=== PATIENT | female | born 1990 | race Caucasian/White ===

== ENCOUNTER → 2020-02-23 | Outpatient (REF) | payer OTHER | LOC: M PLALAB 14:00 | PROVIDERS: ATTEND Advanced Practice Midwife | DX: O34.211 Maternal care for low transverse scar from previous cesarean delivery (principal); O09.291 Supervision of pregnancy with other poor reproductive or obstetric history, first trimester ==

== ENCOUNTER → 2020-08-16 | Outpatient (CLI) | payer OTHER ==
--- NOTE | 2020-08-16 15:51 | REP ---
INDICATION: GROWTH COMPARISON: None. TECHNIQUE: Transabdominal obstetrical ultrasound with color Doppler evaluation. FINDINGS: Examination demonstrates a single live intrauterine in cephalic presentation. motion is identified by technologist. Placenta is noted posterior and grade 2 without evidence for placenta previa or abruption. Amniotic fluid volume is normal. Cervix measures 5.0 cm in length and appears closed.. Selected gestational age: 37 weeks 4 days with LEONIDES 09/02/2020. Gestational age by current measurements 37 weeks 4 days with LEONIDES 09/02/2020. FHR equals 139 beats per minute. BPD: 9.2 cm at 37 weeks 1 day HC: 33.5 cm at 38 weeks 2 days AC: 34.2 cm at 38 weeks 1 day FL: 7.3 cm at 37 weeks 2 days HL: 6.3 cm at 36 weeks 5 days HC/AC: 0.98 Estimated weight 3320 grams (66thpercentile). JEIMY: 16.6 cm (7.5-24.1) Umbilical artery SD ratio: 2.23 (1.57-3.39) IMPRESSION: Single live advanced gestation in cephalic presentation demonstrating appropriate estimated weight and growth. <Electronically signed by Marcus Crystal > 08/16/20 2320
== END ==
LOC: M WHC 14:58
PROVIDERS: ATTEND Advanced Practice Midwife
DX: O34.211 Maternal care for low transverse scar from previous cesarean delivery (principal); O09.293 Supervision of pregnancy with other poor reproductive or obstetric history, third trimester

== ENCOUNTER → 2020-08-27 | Outpatient (CLI) | payer OTHER ==
[~2020-08-27] MED LIST: ABILIFY PO; ERRI0.355 PO; LEXA1TAB PO; PRENTAB9 PO; TYLE500T78 PO; VITA100067 PO
== END ==
LOC: M LABSMTC 11:35
PROVIDERS: ATTEND Specialist
DX: Z11.52 Encounter for screening for COVID-19 (principal)

== ENCOUNTER → 2020-09-03 | Outpatient (CLI) | payer OTHER | LOC: M LABSMTC 11:23 | PROVIDERS: ATTEND Specialist | DX: Z11.52 Encounter for screening for COVID-19 (principal) ==

== ENCOUNTER 2020-09-09 16:58 | Inpatient (IN) | payer OTHER ==
[~2020-09-09] VITALS: Ht 162.6 cm; Wt 99.0 kg
[2020-09-09 17:20] VITALS: BP 136/83
[2020-09-09] MEDS ORDERED: LACTATED RINGER'S 1000 ML IV STA (17:34)
[2020-09-09 18:06] LABS: HEMATOCRIT 39.6 % (36.0-47.0); HEMOGLOBIN 13.2 g/dl (12.0-15.5); MEAN CORPUSCULAR HEMOGLOBIN 30.4 pg (27.0-33.0); MEAN CORPUSCULAR HGB CONC 33.3 g/dl (32.0-36.5); MEAN CORPUSCULAR VOLUME 91.2 fl (80.0-96.0); PLATELET COUNT, AUTOMATED 234 10^3/uL (150-450); RED BLOOD COUNT 4.34 10^6/uL (4.00-5.40); WHITE BLOOD COUNT 11.8 10^3/uL (4.0-10.0)
[2020-09-09 19:43] VITALS: BP 134/79
[2020-09-09 21:06] VITALS: BP 141/74
--- NOTE | 2020-09-09 21:44 | HPE ---
HISTORY AND PHYSICAL DATE OF ADMISSION: 09/09/2020 Aida is a 19-year-old female, 4, para 2-0-1-2, with a history of prior section and successful and history of macrosomia, both infants 10 lb. She is approximately 40 weeks gestation and is being admitted for an induction. The patient was counseled extensively, the risks and benefits of induction after section discussed. She does have a history of prior successful which increases her chance of vaginal delivery after section. Upon admission, no bleeding, no leakage of fluid and good movement. The patient reports occasional contractions. Her record reviewed, essentially unremarkable. labs: Hepatitis negative, HIV negative, GC, Chlamydia negative. Blood type is A positive, rubella immune. One hour sugar testing was 147. Her three hours was within normal limits. OB HISTORY: History of prior section, history of macrosomia and history of a successful of a 10 lb infant. PAST SURGICAL HISTORY: section x1. SOCIAL HISTORY: Denies any alcohol or drug use. FAMILY HISTORY: Significant for diabetes, uterine cancer. PAST MEDICAL HISTORY: Bipolar disorder, currently on no meds. MEDICATIONS: vitamins. ALLERGIES: No known drug allergies. PHYSICAL EXAMINATION: Normal appearing female in no acute distress. Abdomen: Soft, nontender, nondistended. Extremities: No clubbing, cyanosis or edema. Vaginal exam: 2-3 cm dilated, 70% effaced. Fetus at minus 3 station in a vertex position. Tracing reviewed, category 1 tracing. Contraction: Irregular contraction. ASSESSMENT: Intrauterine at 41 weeks gestation with a history of prior section and a successful , being the admitted for trial of labor after section, GBS negative. PLAN: Admit to labor and delivery, routine labs sent and induction of labor and process discussed with the patient. At this point, the patient wants to ambulate and see if her contraction pattern increases. We discussed possible rupture of membrane plus Pitocin augmentation. Patient will consider these options if her labor does not increase. [facility]
[2020-09-09 22:23] VITALS: BP 125/62
[2020-09-10] VITALS (40 sets, daily range): BP systolic 86–152; BP diastolic 48–90
[2020-09-10] MEDS ORDERED: BICITRA 30ML SOLN UDC PO ONE (03:00)
[2020-09-10] MEDS: LR 1,000 ML IV SCH ×2 (04:58→07:24)
[2020-09-10] MEDS ORDERED: OXYTOCIN 30 UNITS IN 0.9% NaCl 500ML IV BAG (J2590) As Ordered ONE (07:06)
[2020-09-10] MEDS ORDERED: FENTANYL 2MCG/ML ROPIVACAINE 0.2% IN 0.9% NACL 100ML IVBAG As Ordered ONE (07:33)
[2020-09-10] MEDS ORDERED: NALOXONE INJ 0.4MG/1ML VIAL (J2310 PER 1MG) IV PRN (07:50)
[2020-09-10] MEDS ORDERED: EPIDURAL COMMENT XX SCH (07:50)
[2020-09-10] MEDS ORDERED: EPIDURAL/PCA KEYS XX PRN (07:50)
[2020-09-10] MEDS ORDERED: REFRIGERATOR IV KEYS XX PRN (07:50)
[2020-09-10] MEDS ORDERED: ONDANSETRON 4MG/2ML VIAL IV PRN (07:50)
[2020-09-10] MEDS ORDERED: diphenhydrAMINE 50MG/ML VIAL (J1200) IV PRN (07:50)
[2020-09-10] MEDS ORDERED: FENTANYL/ROPIVACAINE/NACL BAG 100 ML EPIDURAL SCH (07:50)
[2020-09-10] MEDS ORDERED: LACTATED RINGER'S 1000 ML IV PRN (07:50)
[2020-09-10] MEDS: ePHEDrine SULFATE 25 MG/5 ML(5MG/ML) SYRINGE IV PRN ×3 (08:28→08:37)
--- NOTE | 2020-09-10 12:01 | DNPDOC ---
[facility] Delivery Note Delivery Note DATE OF DELIVERY: 09/10/20 at 1124 PREDELIVERY DIAGNOSIS: 41-1/7 weeks' gestation and augmentation of early labor. POST DELIVERY DIAGNOSIS: Delivered. PROCEDURE: Successful . PACKING SHED SUPERVISOR: Hakeem Poe CNM, [place] ANESTHESIA: epidural. ESTIMATED BLOOD LOSS: 450 mL. FINDINGS: 8 pounds 15 ounces; 4050 grams; male , Score 9/9, x2. DELIVERY SUMMARY: Aida is a 30-year-old female who is now a that presented for induction of labor but not given any medication for induction. She was artificially ruptured at 0246 which caused her to contract. She requested an epidural this morning at 0715. She progressed to fully dilated at 1055. Dr. Renee was notified of impending delivery. She pushed to a living male in the ROSEANN position with restitution to LOT. The anterior shoulder delivered with ease and the corpus immediately followed. The baby was placed [id number] active and crying. The cord was clamped x2 after pulsation ceased and cut by the FOB. The placenta delivered spontaneously and intact at 1132. Uterine hemostasis was achieved via rapid infusion of IV Pitocin, fundal massage, and IM Methergine due to lower uterine atony. Mom plans to breastfeed. Both mom and baby are in stable condition. All counts of instruments and sponges are correct. HAKEEM POE CNM Sep 10, 2020 12:01
[2020-09-10] MEDS ORDERED: DIBUCAINE 1% OINTMENT 30GM TOP PRN (12:05)
[2020-09-10] MEDS ORDERED: RHOGAM 300 MCG (1500 IU) INJ (J2790) IM SCH (12:05)
[2020-09-10] MEDS ORDERED: ANUSOL HC CREAM 30GM TOP PRN (12:05)
[2020-09-10] MEDS ORDERED: ACETAMINOPHEN TAB 650MG DOSE (2X325MG) PO PRN (12:05)
[2020-09-10] MEDS ORDERED: DOCUSATE SODIUM 100MG CAPSULE PO PRN (12:05)
[2020-09-10] MEDS ORDERED: METHYLERGONOVINE MALEATE 0.2 MG TAB PO PRN (12:05)
[2020-09-10] MEDS ORDERED: METHYLERGONOVINE MALEATE 0.2 MG/ML VIAL (J2210) IM ONE (12:05)
[2020-09-10] MEDS ORDERED: MOM 30ML SUSPENSION UDC PO PRN (12:05)
[2020-09-10] MEDS ORDERED: MEASLES,MUMPS,RUBELLA VACCINE INJ (MMR-II) (90707) SC SCH (12:05)
[2020-09-10] MEDS ORDERED: TRANEXAMIC ACID INJection 1,000 MG in NS 100 ML IV PRN (12:25)
[2020-09-10] MEDS: ACETAMINOPHEN 500 MG TAB PO PRN ×2 (13:11→19:29)
[2020-09-10] MEDS ORDERED: OXYTOCIN INJ 10 UNITS/ML VIAL (J2590) IV STA (14:30)
[2020-09-10] MEDS ORDERED: SLF 3 ML SYR IV PRN (15:10)
[2020-09-10] MEDS: LORATADINE 10 MG TAB PO SCH (18:09)
[2020-09-10] MEDS: SLF 3 ML SYR IV SCH (22:47)
[2020-09-11 06:00] VITALS: BP 123/80
[2020-09-11] MEDS: SLF 3 ML SYR IV SCH (06:22)
[2020-09-11] MEDS ORDERED: PRENATAL VITAMINS CHEWABLE TABLET PO SCH (09:00)
[2020-09-11] MEDS: LORATADINE 10 MG TAB PO SCH (09:20)
--- NOTE | 2020-09-11 13:53 | IPNPDOC ---
Progress Note Date of Service: Sep 11, 2020 Day#: 1 Progress Note SUBJECT: Status post . She has been ambulating, voiding spontaneously with out issue and tolerating regular diet. Lochia decreasing/minimal. Pain is well- controlled. Denies headache, visual changes, right upper quadrant pain, shortness breath or chest pain. OBJECTIVE: VITAL SIGNS: Within normal limits, afebrile. Alert and oriented times three. Abdomen: Fundus firm at U-2. Soft, NTTP. ASSESSMENT: Status post uncomplicated spontaneous vaginal delivery. Vitals within normal limits, afebrile, hemodynamically stable with no evidence of infection. PLAN: Discharge to home today. Tylenol and Motrin for pain. Routine instructions/precautions reviewed. Routine PP visit in 6 weeks in clinic. VS, I&O, 24H, Fishbone Vital Signs/I&O Vital Signs Date Time Temp Pulse Resp B/P (MAP) Pulse Ox O2 Delivery O2 Flow Rate FiO2 09/11/20 06:00 98.0 107 20 123/80 (94) 97 Room Air I&O- Last 24 Hours up to 6 AM 09/11/20 06:00 Intake Total 1947.4 ml Output Total 2038 ml Balance -90.6 ml ARELY SANDS DO Sep 11, 2020 13:53
== END 2020-09-11 14:38 | disposition home or self-care (01) | DRG 806 ==
LOC: M LDI 16:58 → M OBS 09-10 14:44
PROVIDERS: ADMIT Obstetrics & Gynecology; ATTEND Advanced Practice Midwife
PROC: 10E0XZZ Delivery of Products of Conception, External Approach (ICD-10-PCS; principal; 2020-09-10)
PROC: 10907ZC Drainage of Amniotic Fluid, Therapeutic from Products of Conception, Via Natural or Artificial Opening (ICD-10-PCS; 2020-09-10)
DX: O48.0 Post-term pregnancy (principal); Z37.0 Single live birth; O72.1 Other immediate postpartum hemorrhage; Z3A.41 41 weeks gestation of pregnancy; O34.211 Maternal care for low transverse scar from previous cesarean delivery; O99.214 Obesity complicating childbirth; E66.9 Obesity, unspecified

== ENCOUNTER → 2020-12-19 | Outpatient (REF) | payer OTHER | LOC: M SFHCWAGY 10:19 | PROVIDERS: ATTEND Advanced Practice Midwife | DX: Z01.419 Encounter for gynecological examination (general) (routine) without abnormal findings (principal); Z12.4 Encounter for screening for malignant neoplasm of cervix | CPT/HCPCS: 87624; G0123 ==

== ENCOUNTER → 2021-04-23 | Outpatient (CLI) | payer OTHER ==
[~2021-04-23] MED LIST changes: +EPIP0.3I2 IM; +FLUTISP INH; +MAG100TA PO; +NORE0.353 PO; +VITA-243 PO; +VITA200016 PO
[2021-04-23 16:00] LABS: HEMOGLOBIN A1c 4.9 %
[2021-04-24 09:33] LABS: FOLATE 20.9 NG/ML; FREE THYROXINE INDEX 2.4 % (1.3-4.8); RHEUMATOID FACTOR QUANT < 10.0 IU/ML (<15.0); T UPTAKE 36 % (30-39); THYROXINE (T4) 6.8 UG/DL (4.5-12.0); TOTAL PROTEIN 6.8 GM/DL (6.4-8.2); VITAMIN B12 LEVEL 427 PG/ML
[2021-04-24 10:18] LABS: DRVV SCREEN 39.2 SEC
[2021-04-24 11:42] LABS: ALBUMIN 4.59 GM/DL (3.29-5.55); ALBUMIN % 62.9 % (55.8-66.1); ALPHA-1-GLOBULIN % 3.9 % (2.9-4.9); ALPHA-1-GLOBULINS 0.28 GM/DL (0.17-0.41); ALPHA-2-GLOBULINS 0.76 GM/DL (0.42-0.99); ALPHA-2-GLOBULINS % 10.4 % (7.1-11.8); BETA-1-GLOBULINS 0.45 GM/DL (0.28-0.60); BETA-1-GLOBULINS % 6.1 % (4.7-7.2); BETA-2-GLOBULINS 0.41 GM/DL (0.19-0.55); BETA-2-GLOBULINS % 5.6 % (3.2-6.5); GAMMA GLOBULIN % 11.1 % (11.1-18.8)
== END ==
LOC: M PLALAB 12:20
PROVIDERS: ATTEND Psychiatry & Neurology Neurology
DX: I73.9 Peripheral vascular disease, unspecified (principal); G43.909 Migraine, unspecified, not intractable, without status migrainosus

== ENCOUNTER → 2022-09-19 | Outpatient (CLI) | payer OTHER ==
[~2022-09-19] MED LIST changes: +FLUT50SP17 INH; -FLUTISP INH; +ROPI1TAB73; +XARE20TA
== END ==
LOC: M RAD 10:16
PROVIDERS: ATTEND Internal Medicine
DX: M25.50 Pain in unspecified joint (principal)

== ENCOUNTER → 2022-10-28 | Outpatient (REF) | payer OTHER ==
[2022-10-28 21:28] LABS: APPEARANCE, URINE CLOUDY (CLEAR); BACTERIA, URINE AUTO NEGATIVE (NEGATIVE); BILIRUBIN, URINE AUTO NEGATIVE (NEGATIVE); BLOOD, URINE BLOOD 3+ (NEGATIVE); COLOR, URINE YELLOW (YELLOW); GLUCOSE, URINE (UA) AUTO NEGATIVE (NEGATIVE); KETONE, URINE AUTO NEGATIVE (NEGATIVE); LEUKOCYTE ESTERASE, URINE AUTO 3+ (NEGATIVE); NITRITE, URINE AUTO NEGATIVE (NEGATIVE); PROTEIN, URINE AUTO 1+ mg/dL (NEGATIVE); RBC, URINE AUTO 55 /HPF (0-3); SPECIFIC GRAVITY URINE AUTO 1.019 (1.002-1.035); SQUAMOUS EPITHELIAL CELL UR AU 1 /HPF (0-6); TRANSITIONAL EPITHELIAL AUTO 1 /HPF; UROBILINOGEN, URINE AUTO 0.2 mg/dL (0.0-2.0); WBC, URINE AUTO TNTC /HPF (0-3)
== END ==
LOC: M LAB REF 21:12
PROVIDERS: ATTEND Physician Assistant Medical
DX: N39.0 Urinary tract infection, site not specified (principal)

== ENCOUNTER → 2023-01-06 | Outpatient (REF) | payer OTHER | LOC: M SFHCWAGY 12:59 | PROVIDERS: ATTEND Nurse Practitioner Family | DX: Z12.4 Encounter for screening for malignant neoplasm of cervix (principal) | CPT/HCPCS: 87624; G0123 ==

== ENCOUNTER → 2023-03-05 | Outpatient (REF) | payer OTHER ==
[~2023-03-05] MED LIST changes: -FLUT50SP17 INH; +FLUTISP INH
== END ==
LOC: M SFHCRHEU 11:23
PROVIDERS: ATTEND Internal Medicine
DX: R21 Rash and other nonspecific skin eruption (principal); R76.8 Other specified abnormal immunological findings in serum

== ENCOUNTER → 2024-01-13 | Outpatient (CLI) | payer OTHER ==
[2024-01-13 13:30] LABS: HEMOGLOBIN A1c 5.3 % (4.0-6.0)
[2024-01-13 14:09] LABS: THYROID STIMULATING HORMONE 2.497 uIU/ML (0.55-4.78)
[2024-01-13 14:10] LABS: PROLACTIN 4.1 NG/ML
[2024-01-13 14:11] LABS: FREE T4 1.27 NG/DL (0.89-1.76)
[2024-01-18 16:37] LABS: TESTOSTERONE FREE (DIRECT) 3.5 pg/mL (0.1-6.4)
== END ==
LOC: M PLALAB 09:13
PROVIDERS: ATTEND Nurse Practitioner Family
DX: L68.0 Hirsutism (principal)

== ENCOUNTER → 2024-02-26 | Outpatient (CLI) | payer OTHER | LOC: M WHC 11:27 | PROVIDERS: ATTEND Nurse Practitioner Family | DX: R10.2 Pelvic and perineal pain (principal); N83.202 Unspecified ovarian cyst, left side ==

== ENCOUNTER → 2024-04-26 | Outpatient (CLI) | payer OTHER | LOC: M WHC 06:52 | PROVIDERS: ATTEND Nurse Practitioner Family | DX: N83.202 Unspecified ovarian cyst, left side (principal) ==

== ENCOUNTER → 2024-05-16 | Outpatient (REF) | payer OTHER ==
[2024-05-17 11:53] LABS: Trichomonas vaginalis (AMP) NOT DETECTED (NEGATIVE)
[2024-05-17 12:17] LABS: GC DNA AMPLIFICATION NEGATIVE (NEGATIVE)
== END ==
LOC: M SFHCWAGY 10:12
PROVIDERS: ATTEND Nurse Practitioner Family
DX: R10.2 Pelvic and perineal pain (principal)

== ENCOUNTER → 2025-01-17 | Outpatient (REF) | payer OTHER ==
[2025-01-17 11:22] LABS: ESTRADIOL 50.7 PG/ML; LUTEINIZING HORMONE 6.3 mIU/ML; PROLACTIN 6.02 NG/ML
[2025-01-17 11:23] LABS: FREE T4 1.29 NG/DL (0.89-1.76); PROGESTERONE 0.78 NG/ML
[2025-01-17 11:41] LABS: ESTIMATED AVERAGE GLUCOSE 108.0 MG/DL (60-110)
[2025-01-18 11:22] LABS: DEHYDROEPIANDROSTERONE SULFATE 83 mcg/dL (19-237)
== END ==
LOC: M PLALAB 10:13
PROVIDERS: ATTEND Nurse Practitioner Family
DX: Z01.419 Encounter for gynecological examination (general) (routine) without abnormal findings (principal); N92.6 Irregular menstruation, unspecified

== ENCOUNTER → 2025-02-13 | Outpatient (CLI) | payer OTHER | LOC: M WHC 06:43 | PROVIDERS: ATTEND Nurse Practitioner Family | DX: N83.202 Unspecified ovarian cyst, left side (principal) ==